=== PATIENT | male | born 1955 | race Caucasian/White ===

== ENCOUNTER → 2018-05-01 07:00 | Outpatient (CLI) | payer OTHER, SELFPAY ==
[2018-05-01 10:01] LABS: Absolute Lymphocyte Count 1.88 X10^3/ul (0.83-4.51); Basophil# 0.02 X10^3/uL; Basophil% 0.4 % (0-1); Eosinophil# 0.16 X10^3/uL; Eosinophils% 3.5 % (0-5); Hematocrit 44.1 % (40-54); Hemoglobin 14.5 g/dl (13.0-16.5); Lymphocyte # 1.88 X10^3/ul (4.0); Lymphocyte % 41.1 % (19-41); Mean Corp Hgb Conc 32.9 g/gl (32-36); Mean Corpuscular Hgb 31.3 pg (27.0-32.0); Mean Corpuscular Volume 95.2 fL (80-94); Mean Platelet Vol. 9.5 fl (6.2-12.0); Monocyte# 0.48 X10^3/uL; Monocyte% 10.5 % (0-10); Neutrophil # 2.03 X10^3/uL (2.7-7.7); Neutrophil % 44.5 % (47-70); Platelet Count 317 K/mm3 (150-450); RBC Distribution Width CV 13.3 % (11.6-14.6); RBC Distribution Width SD 46.6 fl (35.1-43.9); Red Blood Count 4.63 M/mm3 (4.6-6.2); White Blood Count 4.6 K/mm3 (4.4-11.0)
[2018-05-01 10:02] LABS: POSITIVE COUNT NO; POSITIVE DIFFERENTIAL NO; POSITIVE MORPHOLOGY NO
[2018-05-01 10:16] LABS: Anion Gap 8 (5-15); BUN 18 mg/dL (7-18); Calcium,Total 8.8 mg/dL (8.5-10.1); Chloride 104 mmol/L (98-107); Cholesterol 220 mg/dL (200); Creatinine, Serum 1.06 mg/dL (0.70-1.30); EST Glomerular Filtration Rate 75 mL/min (>60); Est Glom Filt Rate - Afr Amer 91 mL/min (>60); Glucose 76 mg/dL (74-106); High Density Lipoprotein 81 mg/dL; PSA,Total - Annual Screen 1.25 ng/mL (0.00-4.00); Potassium 4.4 mmol/L (3.5-5.1); Sodium Level 141 mmol/L (136-145); Triglycerides 97 mg/dL; Very Low Density Lipoprotein 19 mg/dL (5-40)
== END ==
PROVIDERS: Family Provider Family Medicine; PCP Family Medicine; Visit Provider Family Medicine
DX: E78.00 Pure hypercholesterolemia, unspecified (principal); G40.909 Epilepsy, unspecified, not intractable, without status epilepticus; Z12.5 Encounter for screening for malignant neoplasm of prostate
CPT/HCPCS: 36415; 80048; 80061; 84153; 85025; G0103

== ENCOUNTER 2019-03-03 09:30 | Outpatient (RCR) | payer OTHER, SELFPAY ==
--- NOTE | 2019-02-08 14:56 | HP.OTEVAL ---
Patient's Visit Information BO FU is a 63 year old M, referred to Occupational Therapy by Irasema Benavides MD, with a diagnosis of right closed displaced fx of base of 5th metacarpal bone. Date of Evaluation: 02/08/19 Occupational Therapist: Joan Lima, KAMI/Itzel, CHT - Subjective Subjective: This 63 year old male was seen for intial OT eval following a right 5th Metacarpal fx -sometime in nov. pt did have a removable cast placed on and off for a while, now he is cleared to start therapy- would like to get some mobility and return to PLOF. pt states limited ROM and pain does limit him with daily tasks. - ADLs Eating: Use silverware, Cut food Bathing: Handle washcloth & soap Grooming: Squeeze toothpaste on Kitchen: Chop with knife, Open jars, Open bottle caps - Pain right hand 4 Pain Intensity Range: 0, 5 - Strength Wrist: right RD/UD 15/15 left 15/25 right 60/30 left 50/70 Strawhat Blocking Operator: right 40# with pain left 80# Lateral Pinch: right 19# left 22# Tripod Pinch: right 12# left 20# - Edema PIP: right LF 6.0 left 5.3 - Sensation Sensation Comments: denies - Quick DASH-Disab of Arm,Shoulder& Hand Quick DASH Score: 51.6650 - Goals Goal:: PT will demo an increase in tool worker strength by 20# to increase independent with basic occupations of daily living to return pt to PLOF by D/C. Pt will demo an increase in lateral and tripod pinch by 2# to increase pts independent with opening baggies, containers at PLOF by D/C. Goal:: Pt will demo an increase in wrist ROM equal to unaffected wrist to return pt to PLOF with grooming, dressing and home mtg tasks by D/C. Pt will demo the ability to form a composite fist to return to performing BADLs and IADLS at PLOF by d/c. Goal:: Pt will report pain no greater than 1/10 with use of affected hand with BADLs and IADLs by d/c. - Rehabilitation General Assessment: PT demo with limited right wrist and digit ROM, and strength. The deficits have limited pts with ind. in ADLS and IADLS. pt would benefit from skilled OT services 1-2x week for 4 weeks- therapy will challenge pts deficits to return pt to PLOF. Today pt has been ed. in ROM of wrist flex/ext, RD/UD as well as composite fist ROM. pt demo understanding and agrees to POC. Rehabilitation Potential: Good - Anticipated Interventions Anticipated Interventions: A/AAROM/PROM, Strengthening, Triggerpoint Release, Modalities, Orthoses, Joint Protection/Energy Conservation, Ergonomic Education - Visit Plan Frequency: 1-2x /Week Duration: 4 Weeks TEXT: Thank you for the opportunity to evaluate your patient. For Medicare and Medicare HMO plans, please review the plan of care and approve it. It will need to be FAXED BACK to us at [phone] for Medicare purposes. Please let me know if there are questions or concerns regarding this plan of care. Physician Signature: Date:
--- NOTE | 2019-03-03 10:02 | HP.OTDCSUM_ITS ---
HP - OT D/C Summary It has been my pleasure to treat BO FU under orders from Irasema Benavides MD, for the diagnosis of right closed displaced fx of base of 5th metacarpal bone for a total of 4 visit(s). Please see the following information for a summary of their discharge status. - Overall Improvement % Improvement: 80 - Objective Objective/Function: pt demo with a right ordering machine operator of 65# a increase from 40#. right lateral pinch 19# and tripod pinch 12#. pt also demo a increase in right wrist ROM 70/45 - Goals Patient Goals: Regain Mobility, Regain Strength, Decrease Pain, Use Hand/Wrist/Arm Normally Again Goal:: PT will demo an increase in ordering machine operator strength by 20# to increase independent with basic occupations of daily living to return pt to PLOF by D/C. Pt will demo an increase in lateral and tripod pinch by 2# to increase pts independent with opening baggies, containers at PLOF by D/C. Goal:: Pt will demo an increase in wrist ROM equal to unaffected wrist to return pt to PLOF with grooming, dressing and home mtg tasks by D/C. Pt will demo the ability to form a composite fist to return to performing BADLs and IADLS at PLOF by d/c. Goal:: Pt will report pain no greater than 1/10 with use of affected hand with BADLs and IADLs by d/c. - Plan Plan: d/c - D/C Information Discharge Comments: pt made good progress with his therapy. He met all goals and is d/c at this time. If there are questions or concerns regarding this patient's occupational therapy, please fell free to call me at [phone]. Thank you for the referral of this patient. Sincerely, Joan Lima, OTR/L, CHT
== END 2019-03-03 17:44 | disposition home or self-care (01) ==
LOC: OT 09:30
PROVIDERS: Family Provider Family Medicine; PCP Family Medicine; Referring Provider Orthopaedic Surgery Hand Surgery; Visit Provider Orthopaedic Surgery Hand Surgery
DX: S62.316D Displaced fracture of base of fifth metacarpal bone, right hand, subsequent encounter for fracture with routine healing (principal)
CPT/HCPCS: 97035; 97110; 97166; 97530

== ENCOUNTER 2019-05-13 11:57 | Outpatient (RCR) | payer OTHER, SELFPAY ==
--- NOTE | 2019-05-14 10:58 | HP.OTEVAL ---
Patient's Visit Information BO FU is a 63 year old M, referred to Occupational Therapy by Donald Bloom MD, with a diagnosis of Dupuytren Contracture. Date of Evaluation: 05/13/19 Occupational Therapist: Monica Infante, OTR/L - Subjective Subjective: Arrived and is s/p release of R hand dupuytren's contracture at 4th and 5th fingers. Completed xiaflex injection Friday and manipulation this morning. He previous broke R wrist in 2018 and saw CHT in clinic. No ORIF needed. - ADLs Dressing: Socks, Shoes Yard: Mow lawn, [place], [place], Use shovel, Use pruners, Use trowel Miscellaneous: Use power tools Comments: CAnt do the normal workouts. - Pain Right Hand 2 Pain Intensity Range: 0, 1, 8, 9 - ROM Wrist: flexion R 0-63 WFL; ext R 0-30 MP: RF R 19-83, PF R 22-84 PIP: RF R 0-95, PF R 43-87 DIP: RF R 0-67, PF R 0-41 ROM Comments: arthitic like nodule at dorsal PIP. - Strength Corporate Director Talent Assessment: R 46, L 86 Lateral Pinch: R 24, L 27 Tripod Pinch: R 18, L 23 - Quick DASH-Disab of Arm,Shoulder& Hand Quick DASH Score: 20.4525 - Goals Goal:: Keagan to incrased R tube bending machine operator strength by 20 lbs to promote increased strength and ROM needed to return to PLOF by end of d/c. Goal:: Keagan to increased ROM of RF and PF to promote gaining of 5-10 degrees of flexion and extension at all joints to promote increased tendon pull and ability to fx use R hand for ADL/IAdls by d/c. Goal:: Keagan to complete daily scar massage to injection site to manage any scar formation and promote increasing tendon pull to promote ROM 80% of the time by d/c. Goal:: Keagan to be (I) to return to normal use of R hand 4/5 trials 80% of the time to promote returning to PLOF by d/c. Goal:: Keagan to be (I) to complete daily HEp for strengthening and ROM needed to promote tednon glide and general fx use of R ahdn for ADL/IADLS by d/c. - Rehabilitation General Assessment: Keagan arrived for OT evaluation on this date of 05/13/19. He is s/p xilflex injection for treatment of R hand dupuytrens contracture 05/10/19 and had manipulation of fingers this morning. He exhibits limited ROM and strength of R dominant hand with need for further skilled OT to promote returning to [facility] for all ADL/IADLs of R dominant hand. Rehabilitation Potential: Good - Anticipated Interventions Anticipated Interventions: A/AAROM/PROM, Strengthening, Edema Control, Sensory Retraining, Wound Care, Modalities, Orthoses, Joint Protection/Energy Conservation, Ergonomic Education, Dynamic Sitting Balance, Fine Motor Coord/Hunter, Neuro Reeducation, ADL Training, Caregiver Training, Home Program - Visit Plan Frequency: 2x /Week Duration: 4 Weeks TEXT: Thank you for the opportunity to evaluate your patient. For Medicare and Medicare HMO plans, please review the plan of care and approve it. It will need to be FAXED BACK to us at [phone] for Medicare purposes. Please let me know if there are questions or concerns regarding this plan of care. Physician Signature: Date:
--- NOTE | 2019-05-14 12:21 | HP.OTEVAL ---
Patient's Visit Information BO FU is a 63 year old M, referred to Occupational Therapy by Donald Bloom MD, with a diagnosis of Dupuytren Contracture. Date of Evaluation: 05/13/19 Occupational Therapist: Monica Infante, OTR/L - Subjective Subjective: Arrived and is s/p release of R hand dupuytren's contracture at 4th and 5th fingers. Completed xiaflex injection Friday and manipulation this morning. He previous broke R wrist in 2018 and saw CHT in clinic. No ORIF needed. - ADLs Dressing: Socks, Shoes Eating: Cut food Yard: Mow lawn, [place], [place], Use shovel, Use pruners, Use trowel Miscellaneous: Write, Use power tools, Pump gas, Drive Comments: Can't do the normal wbing workouts. - Pain Right Hand 2 Pain Intensity Range: 0, 1, 8, 9 - ROM Wrist: flexion R 0-63 WFL; ext R 0-30 MP: RF R 19-83, PF R 22-84 PIP: RF R 0-95, PF R 43-87 DIP: RF R 0-67, PF R 0-41 ROM Comments: arthritic like nodule at dorsal PIP. 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 Goal:: Keagan to increase ROM of RF and PF of 5-10 degrees of flexion and extension at all joints to promote increased tendon pull and ability to functionally use R hand for ADL/IAdls by d/c. Goal:: Keagan to consistently have no more than 1/10 pain with repetitive movement tasks 4/5 trials 80% of the time to promote increased ROM and strength by d/c. Goal:: Keagan to complete daily scar massage to injection site to manage any scar formation and promote increasing tendon pull to promote ROM 80% of the time by d/c. Goal:: Keagan to be (I) to return to normal use of R hand 4/5 trials 80% of the time to promote returning to PLOF by d/c. Goal:: Keagan to be (I) to complete daily HEp for strengthening and ROM needed to promote tednon glide and general fx use of R ahdn for ADL/IADLS by d/c. - Rehabilitation General Assessment: Keagan arrived for OT evaluation on this date of 05/13/19. He is s/p xilflex injection for treatment of R hand dupuytrens contracture 05/10/19 and had manipulation of fingers this morning. He exhibits limited ROM and strength of R dominant hand with need for further skilled OT to promote returning to PLOF for all ADL/IADLs of R dominant hand. Rehabilitation Potential: Good - Anticipated Interventions Anticipated Interventions: A/AAROM/PROM, Strengthening, Edema Control, Sensory Retraining, Wound Care, Modalities, Orthoses, Joint Protection/Energy Conservation, Ergonomic Education, Dynamic Sitting Balance, Fine Motor Coord/Hunter, Neuro Reeducation, ADL Training, Caregiver Training, Home Program - Visit Plan Frequency: 2x /Week Duration: 4 Weeks TEXT: Thank you for the opportunity to evaluate your patient. For Medicare and Medicare HMO plans, please review the plan of care and approve it. It will need to be FAXED BACK to us at [phone] for Medicare purposes. Please let me know if there are questions or concerns regarding this plan of care. Physician Signature: Date:
--- NOTE | 2019-07-02 14:39 | HP.OT.NRP ---
HP - Discharge Summary - Patient Information BO FU was seen in my office for initial evaluation on 05/13/19. The following Plan of Care was established for this patient: Initial Frequency: 2x /Week Initial Duration: 4 Weeks - Anticipated Interventions Anticipated Interventions: A/AAROM/PROM, Strengthening, Edema Control, Sensory Retraining, Wound Care, Modalities, Orthoses, Joint Protection/Energy Conservation, Ergonomic Education, Dynamic Sitting Balance, Fine Motor Coord/Hunter, Neuro Reeducation, ADL Training, Caregiver Training, Home Program This patient was last seen in our office 05/13/19. Pertinent comments regarding their Occupational therapy will appear below: Seen for evaluation only and did not follow up for further treatment. He noted that he feels 'hand is as good as it will get and he is still using it' and declined need for further follow up. he will be d/c'd at this time. At this point I will be discontinuing this patient from occupational therapy. I would be happy to see this patient again in the future if found appropriate by the physician. Thank you! Monica Infante, OTR/L
== END 2019-05-13 19:00 | disposition home or self-care (01) ==
LOC: OT 11:57
PROVIDERS: Family Provider Family Medicine; PCP Family Medicine; Referring Provider Orthopaedic Surgery; Visit Provider Orthopaedic Surgery
DX: M72.0 Palmar fascial fibromatosis [Dupuytren] (principal)
CPT/HCPCS: 97166; 97760

== ENCOUNTER → 2024-05-15 | Outpatient (CLI) | payer OTHER, SELFPAY ==
[2024-05-15 08:49] LABS: Absolute Neutrophil Count 1.8 X10^3/uL (2.0-7.7); Basophil# 0.02 X10^3/uL; Basophil% 0.4 % (0-1); Eosinophil# 0.16 X10^3/uL; Eosinophils% 3.5 % (0-5); Hematocrit 43.2 % (40-54); Lymphocyte % 46.2 % (19-41); Mean Corp Hgb Conc 32.4 g/dL (32-36); Mean Corpuscular Volume 95.8 fL (80-94); Mean Platelet Vol. 9.3 fl (6.2-12.0); Monocyte# 0.48 X10^3/uL; Monocyte% 10.5 % (0-10); NRBC Flagged by Analyzer 0 % (0-5); Neutrophil # 1.79 X10^3/uL (2.7-7.7); Neutrophil % 39.4 % (47-70); Platelet Count 325 K/mm3 (150-450); RBC Distribution Width CV 13.1 % (11.6-14.6); RBC Distribution Width SD 46.3 fl (35.1-43.9); Red Blood Count 4.51 M/mm3 (4.6-6.2); White Blood Count 4.6 K/mm3 (4.4-11.0)
[2024-05-15 08:54] LABS: AST(SGOT) 28 U/L (15-37); Alanine Aminotransfer ALT/SGPT 22 U/L (16-61); Albumin, Serum 3.4 g/dL (3.2-5.0); Alkaline Phosphatase 53 U/L (45-117); Anion Gap 4 (5-15); BUN 13 mg/dL (7-18); BUN/Creat Ratio 14.2 RATIO (10-20); Calcium,Total 8.8 mg/dL (8.5-10.1); Chloride 108 mmol/L (98-107); Cholesterol 204 mg/dL (200); Creatinine, Serum 0.92 mg/dL (0.70-1.30); EST Glomerular Filtration Rate 87 mL/min (>60); Est Glom Filt Rate - Afr Amer 105 mL/min (>60); Globulin 3.3 g/dL (2.2-4.2); Glucose 90 mg/dL (74-106); High Density Lipoprotein 76 mg/dL; PSA,Total - Annual Screen 1.86 ng/mL (0.00-4.00); Potassium 4.4 mmol/L (3.5-5.1); Protein, Total 6.7 g/dL (6.4-8.2); Sodium Level 142 mmol/L (136-145); Triglycerides 67 mg/dL; Very Low Density Lipoprotein 13 mg/dL (5-40)
== END | disposition home or self-care (01) ==
PROVIDERS: PCP Family Medicine; Referring Provider Nurse Practitioner Family; Visit Provider Nurse Practitioner Family
DX: I10 Essential (primary) hypertension (principal); E78.5 Hyperlipidemia, unspecified; Z12.5 Encounter for screening for malignant neoplasm of prostate
CPT/HCPCS: 36415; 80053; 80061; 84153; 85025; G0103